=== PATIENT | male | born 1980 | race Caucasian/White ===

== ENCOUNTER 2017-10-05 09:15 | Emergency (ER) | payer BC ==
[2017-10-05 09:37] VITALS: BP 118/71
--- NOTE | 2017-10-05 09:58 | UC ---
Skin Complaint HPI - HPI Summary HPI Summary: Went camping Friday and was in the sun all day without sunblock. 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 yesterday this started with eye watering and then swelling of the eye lids. No changes in vision. No there is swelling of the facial skin with fine rash. He is on mental health meds but none are new. no oral or lip involvement and the rash and swelling is isolated to the face. No other parts of the body have any changes including hands and feet. - History of Current Complaint Chief Complaint: UCSkin Time Seen by Provider: 10/05/17 09:42 Stated Complaint: FACIAL SWELLING Hx Obtained From: Patient Onset/Duration: Gradual Onset Skin Exposure Onset/Duration: Days Ago Onset Severity: Mild Current Severity: Moderate Pain Intensity: 1 Location: Diffuse, Face Character: Swelling, Pruritus, Redness, Raised Aggravating Factor(s): Nothing Alleviating Factor(s): Nothing Associated Signs & Symptoms: Positive: Rash. Negative: Nausea, Vomiting, Difficulty Breathing, Fever, Cough, Wheezing, Chest Pain, Hoarseness, Throat Tightening - Allergy/Home Medications Allergies/Adverse Reactions: Allergies Allergy/AdvReac Type Severity Reaction Status Date / Time No Known Allergies Allergy Verified 10/05/17 09:31 Home Medications: Home Medications Amphetamine MIXED SALT TAB* [Adderall TAB*] 20 mg PO BID 10/05/17 [History Confirmed 10/05/17] Levomilnacipran HCl [Fetzima] 40 mg PO DAILY 10/05/17 [History Confirmed ] Arbutus Carbonate TAB* 600 mg PO DAILY 10/05/17 [History Confirmed 10/05/17] Rosuvastatin Calcium 10 mg PO DAILY 10/05/17 [History Confirmed 10/05/17] carBAMazepine TAB(*) [TEGretol TAB(*)] 200 mg PO QAM 10/05/17 [History Confirmed 10/05/17] carBAMazepine TAB(*) [TEGretol TAB(*)] 400 mg PO QPM 10/05/17 [History Confirmed 10/05/17] risperiDONE TAB* [RisperDAL*] 1 mg PO DAILY 10/05/17 [History Confirmed 10/05/17 ] Review of Systems Skin: Rash All Other Systems Reviewed And Are Negative: Yes PMH/Surg Hx/FS Hx/Imm Hx Previously Healthy: No - Mental health disease. - Surgical History Surgical History: None - Family History Known Family History: Positive: Other - No related skin diseases in the family. - Social History Occupation: Employed Full-time Alcohol Use: None Substance Use Type: None Smoking Status (MU): Never Smoked Tobacco Physical Exam Triage Information Reviewed: Yes Appearance: Well-Appearing, No Pain Distress, Well-Nourished Vital Signs: Initial Vital Signs Temp 98.4 F 10/05/17 09:28 Pulse 70 10/05/17 09:28 Resp 16 10/05/17 09:28 BP 118/71 10/05/17 09:28 Pulse Ox 99 10/05/17 09:28 Vital Signs Reviewed: Yes Eyes: Positive: Conjunctiva Clear, Other: - Watery eyes without purulence or injection.. Negative: Conjunctiva Inflamed ENT: Positive: Pharynx normal, Uvula midline. Negative: Pharyngeal erythema, Nasal congestion, Muffled voice Neck: Positive: Supple, Nontender, No Lymphadenopathy. Negative: Nuchal Rigidity Respiratory: Positive: Lungs clear, Normal breath sounds, No respiratory distress, No accessory muscle use. Negative: Respiratory distress, Decreased breath sounds, Accessory muscle use, Crackles, Rhonchi, Stridor, Wheezing Cardiovascular: Positive: No Murmur, Pulses Normal, Brisk Capillary Refill Abdomen Description: Positive: No Organomegaly, Soft. Negative: Distended, Guarding Musculoskeletal: Positive: Strength Intact, ROM Intact, No Edema Neurological: Positive: Alert, Muscle Tone Normal. Negative: Fatigued Psychological: Positive: Age Appropriate Behavior Skin: Positive: rashes - there is diffuse swelling of the marianna maxilla, eye lids and forehead. diffuse facial macular papular rash that is fine. no vesicles. No lip or oral involvement. Course/Dx - Diagnoses Provider Diagnoses: dermatitis. Discharge - Sign-Out/Discharge Documenting (check all that apply): Patient Departure - Discharge Plan Condition: Good Disposition: HOME Prescriptions: Loratadine [Claritin] 10 mg PO BID #10 capsule predniSONE [Prednisone 20 MG TAB] 20 mg PO BID #10 tablet Ranitidine TAB (NF) [Zantac TAB (NF)] 150 mg PO BID #20 tab Patient Education Materials: Contact Dermatitis (ED) Referrals: Rogelio,Agnieszka, SENIOR CYTOGENETIC TECHNOLOGIST [Primary Care Provider] - If Needed - Billing Disposition and Condition Condition: GOOD Disposition: Home
== END 2017-10-05 09:58 | disposition home or self-care (01) ==
LOC: UCCORT 09:15
DX: L30.9 Dermatitis, unspecified (principal)
CPT/HCPCS: 99202; G0463